=== PATIENT | female | born 1995 | race Caucasian/White ===

== ENCOUNTER 2023-10-13 12:54 | Observation (INO) | payer OTHER, SELFPAY ==
[2023-10-13] VITALS (20 sets, daily range): BP systolic 105–133; BP diastolic 68–78; PULSE 75–131; RESP 15–26; TEMP 36.4–38.1; O2SAT 97–100; BMI 24.5; BMI 24.6
--- NOTE | 2023-10-13 13:03 | ED_ITS ---
HPI - Nausea/Vomiting/Diarrhea General Chief complaint: Nausea/Vomiting/Diarrhea Stated complaint: Post 5 days, n/v/uti/orthostatic Time Seen by Provider: 10/13/23 13:03 Source: patient and EMS Mode of arrival: EMS History of Present Illness HPI Narrative: 28-year-old woman, , status post vaginal delivery on 10/07 discharged from [facility] on the . Notes indicate that she was afebrile with stable vitals from fundus and normal amount of lochia at time of discharge. On the she talked to the on-call central processing technician and was felt to have a urinary tract infection Macrobid was started and was to continue for 7 days, she took a single dose last night. She was also given Anusol HC for her hemorrhoids. She is been having difficulty with , notes that she is engorged but not having any luck with latching and does not want to continue pumping. Likely will choose to not continue . She has been having some diarrhea she would an episode of vomiting earlier today. She is not noticing significant vaginal discharge, odor and is not particularly concerned with any uterine cramping. Related Data Allergies Allergy/AdvReac Type Severity Reaction Status Date / Time No Known Drug Allergies Allergy Verified 10/13/23 13:34 Review of Systems Review of Systems Narrative: Pertinent positive and negative findings as per HPI Patient History Social History Smoking Status: Current every day smoker Smoking Status: Current every day smoker alcohol intake frequency: holidays/special occasions only Substance Use Type: does not use Exam Initial Vital Signs Initial Vital Signs: Vital Signs Temperature 100.2 F H 10/13/23 12:55 Pulse Rate 131 H 10/13/23 12:55 Respiratory Rate 20 10/13/23 12:55 Blood Pressure 115/75 10/13/23 12:55 Pulse Oximetry 97 10/13/23 12:55 Oxygen Delivery Method Room Air 10/13/23 12:55 General: Pale, poor color to her lips even lying supine, in no acute distress. Able to give a complete and coherent history. Well-nourished well-developed HEENT: Moist mucous membranes, normal sclera with reactive pupils, Neck: No cervical adenopathy, supple Respiratory: Lungs are clear to auscultation, no wheezing no rales no rhonchi. Full and symmetrical air movement Chest: Breasts are full but no erythema or point tenderness beyond being engorged Cardiac: Tachycardic but otherwise Regular rate and rhythm no murmurs no bruits Abdomen: Soft, nontender, good bowel tones, no flank pain. Uterus is 3-4 cm below the umbilicus and is not tender to palpation Skin: Pale, diaphoretic, no rashes Neurologic: Globally weak but Grossly neurologically intact with no obvious asymmetries or abnormalities Extremities: No trauma, well perfused, no lower extremity edema Psych: Cooperative, appropriate insight and affect Course Orders Ordered: ED Orders 10/13/23 13:00 Complete Blood Count AUTO DIFF Stat Comprehensive Metabolic Panel Stat Lactate (Lactic Acid) Stat Lipase Stat PTT Partial Thromboplastin Dustin Stat Procalcitonin Stat Prothrombin Time INR Stat 10/13/23 13:01 EKG-12 Lead Stat 10/13/23 13:04 XR chest 1V Stat RT Consult Eval and Treat NOW 10/13/23 13:11 Blood Culture Stat 10/13/23 13:15 US pelvic complete Stat 10/13/23 15:27 Urine Culture Stat Urine Microscopic Stat Sodium Chloride (Normal Saline 0.9%) 1,000 mls @ 200 mls/hr IV CONT ANURAG Last Admin: 10/13/23 15:28 Dose: 200 mls/hr Documented By: PARTHA Ondansetron HCl (Ondansetron 4 Mg/2 Ml Inj) 4 mg IV NOW PRN PRN Reason: Nausea And Vomiting Ondansetron HCl (Ondansetron 4 Mg Odt) 4 mg SL NOW PRN PRN Reason: Nausea And Vomiting Discontinued Medications Acetaminophen (Acetaminophen 325 Mg Tablet) 975 mg PO NOW ONE Stop: 10/13/23 15:42 Last Admin: 10/13/23 15:48 Dose: 975 mg Documented By: PARTHA Sodium Chloride (Normal Saline 0.9%) 1,000 mls @ 1,000 mls/hr IV BOLUS ONE Stop: 10/13/23 14:02 Last Infusion: 10/13/23 13:53 Dose: Infused Documented By: Admin: 10/13/23 13:05 Dose: 1,000 mls/hr Documented By: PARTHA Piperacillin Sod/Tazobactam (Sod 4.5 gm/ Sodium Chloride) 100 mls @ 200 mls/hr IV NOW ONE Stop: 10/13/23 13:27 Last Infusion: 10/13/23 14:21 Dose: Infused Documented By: Admin: 10/13/23 13:49 Dose: 200 mls/hr Documented By: PARTHA Gentamicin Sulfate 380 mg/ (Sodium Chloride) 109.5 mls @ 109.5 mls/hr IV NOW ONE Stop: 10/13/23 13:27 Last Infusion: 10/13/23 15:43 Dose: Infused Documented By: Admin: 10/13/23 14:38 Dose: 109.5 mls/hr Documented By: PARTHA Clindamycin Phosphate (Cleocin) 900 mg in 50 mls @ 50 mls/hr IV Q8H ONE Stop: 10/13/23 14:26 Last Admin: 10/13/23 15:48 Dose: 50 mls/hr Documented By: PARTHA Sodium Chloride (Normal Saline 0.9%) 1,000 mls @ 1,000 mls/hr IV BOLUS ONE Stop: 10/13/23 14:25 Last Infusion: 10/13/23 14:48 Dose: Infused Documented By: Admin: 10/13/23 13:48 Dose: 1,000 mls/hr Documented By: PARTHA Sodium Chloride (Normal Saline 0.9%) 1,000 mls @ 1,000 mls/hr IV BOLUS ONE Stop: 10/13/23 14:26 Last Admin: 10/13/23 15:20 Dose: Not Given Documented By: PARTHA Vital Signs Vital signs: Vital Signs - 8 hr 10/13/23 12:55 10/13/23 12:55 10/13/23 13:00 Temperature 100.2 F H 100.2 F H Pulse Rate 131 H 127 H 117 H Respiratory Rate 20 18 Blood Pressure 115/75 Pulse Oximetry 97 97 97 Oxygen Delivery Method Room Air Room Air 10/13/23 13:02 10/13/23 13:02 10/13/23 13:15 Temperature Pulse Rate 118 H Respiratory Rate 22 Blood Pressure 116/68 129/72 Pulse Oximetry 97 Oxygen Delivery Method 10/13/23 13:15 10/13/23 13:17 10/13/23 13:17 Temperature Pulse Rate 116 H 126 H Respiratory Rate 16 26 H Blood Pressure 133/71 Pulse Oximetry 98 Oxygen Delivery Method 10/13/23 13:30 10/13/23 13:30 10/13/23 13:45 Temperature Pulse Rate 120 H 108 H Respiratory Rate 17 15 Blood Pressure 125/70 Pulse Oximetry 98 98 Oxygen Delivery Method 10/13/23 13:45 10/13/23 14:00 10/13/23 14:00 Temperature Pulse Rate 112 H Respiratory Rate 26 H Blood Pressure 106/69 123/78 Pulse Oximetry 98 Oxygen Delivery Method 10/13/23 14:12 10/13/23 14:12 10/13/23 14:30 Temperature Pulse Rate 118 H 106 H Respiratory Rate 18 20 Blood Pressure 111/73 Pulse Oximetry 98 100 Oxygen Delivery Method 10/13/23 15:00 10/13/23 15:30 10/13/23 15:41 Temperature 100.5 F H Pulse Rate 99 H 100 H Respiratory Rate 21 22 Blood Pressure Pulse Oximetry 99 97 Oxygen Delivery Method Room Air 10/13/23 16:00 10/13/23 16:07 10/13/23 16:07 Temperature Pulse Rate 91 H 84 Respiratory Rate 19 Blood Pressure 106/70 Pulse Oximetry 98 97 Oxygen Delivery Method MDM - Nausea/Vomiting/Diarrhea Lab Data 10/13/23 13:00 10/13/23 13:00 Labs: Lab Results 10/13/23 10/13/23 Range/Units 13:00 15:27 WBC 20.2 H (4.5-11.0) X10^3/uL RBC 5.17 (4.0-5.2) X10^6/uL Hgb 15.9 (12.0-16.0) g/dL Hct 46.9 H (36-46) % MCV 90.7 (80-100) fL MCH 30.7 (26-34) PG MCHC 33.9 (30-36) % RDW 13.1 (11.6-14.8) % Plt Count 227 (150-400) X10^3/uL Neut % (Auto) 95.3 H (50-75) % Lymph % (Auto) 1.7 L (25-40) % [place] % (Auto) 2.2 L (3-14) % Eos % (Auto) 0.7 L (2-4) % Baso % (Auto) 0.1 (0-2) % Neut # (Auto) 36068 H (4297-4863) /uL Lymph # (Auto) 300 L (4133-0516) /uL [place] # (Auto) 400 (0-900) /uL Eos # (Auto) 200 (0-450) /uL Baso # (Auto) 0 (0-100) /uL PT 10.5 (9.4-12.5) SECONDS INR 0.9 (0.9-1.3) APTT 26 (25.1-36.5) SECONDS Sodium 136 L (137-145) mmol/L Potassium 4.0 (3.4-5.1) mmol/L Chloride 106 (98-107) mmol/L Carbon Dioxide 21 L (22-32) mmol/L BUN 14 (7-17) mg/dL Creatinine 0.65 (0.52-1.04) mg/dL Estimated GFR > 60 (>60) mL/min BUN/Creatinine Ratio 21.5 (6-22) Glucose 100 (70-100) mg/dL Lactate 1.0 (0.7-2.1) mmol/L Calcium 9.6 (8.4-10.2) mg/dL Total Bilirubin 1.1 (0.2-1.3) mg/dL AST 37 H (14-36) IU/L ALT 49 H (<35) IU/L Alkaline Phosphatase 142 H (38-126) U/L Total Protein 7.8 (6.3-8.2) g/dL Albumin 4.1 (3.5-5.0) g/dL Globulin 3.7 (1.7-4.1) g/dL Albumin/Globulin Ratio 1.1 (1.0-2.8) Lipase 59 (23-300) U/L Procalcitonin 0.09 (<0.5) ng/mL Urine RBC 5-10/hpf H (0-5/HPF) Urine WBC 5-10/hpf H (0-5/HPF) Ur Squamous Epith Cells 0-1 /hpf (0-5/HPF) Urine Bacteria Occasional (0-1) (None) Ur Culture Indicated? Specimen cultured Urine Dip Bedside Urine Glucose Negative Bedside Urine Bilirubin - Negative Bedside Urine Ketone + 15 Urine Specific [place] 1.015 Bedside Urine Occult Blood +++ Bedside Urine pH 6.0 Bedside Urine Protein - Negative Bedside Urine Urobilinogen - Negative Bedside Urine Nitrite - Negative Bedside Urine Leukocytes +++ 500 Esterase [facility] decision making narrative: CC: Nausea, vomiting, tachycardia and hypotension Complicating co-morbidities: 5 days , vaginal delivery Data collected from: patient, mother Medical records reviewed: Delivery notes and on-call notes from [facility] reviewed. Macrobid was the antibiotic that was called in for presumed UTI when she is taken a single dose of that so far Differential considered: Sepsis, UTI, pyelonephritis, endomyometrosis, retrain products of conception, mastitis Exam documented above, pertinent findings include: Pale significantly orthostatic, tachycardic. Aside from the dysuria no localizing signs of infection. Lab Test results independently reviewed as above. Pertinent findings: [facility]: White blood cell count at time of discharge from the hospital 10/09 was 22.2. White blood cell count on arrival October 07 was 11.6 CBC shows a white count of 20.2 with 95% neutrophils. No evidence of hemolysis or low platelets Chemistries show reassuring renal function, ALT AST and alkaline phosphatase are all slightly elevated. Procalcitonin is not significantly elevated Lipase is normal Lactic acid is normal Imaging studies independently reviewed: Ultrasound of the uterus does not show any retained products or concerns for significantly thickened endometrium 5 days Chest x-ray is independently reviewed and is unremarkable Consultations:Dr Wright, will admit Treatments: Initial antibiotics will include Zosyn with concerns for sepsis unknown source as well as clindamycin and gentamicin for appropriate endometritis coverage Re-evaluations: After 3 L of fluid she is still slightly tachycardic but at least not going up into the 160s when she stands. She feels that she could void if requested but certainly does not feel the immediate urge. So still concerns for infection however this is not mastitis, gallbladder issue, endometrial infection, cellulitis, mastitis or pneumonia. Still waiting for urine but she has minimal suprapubic tenderness and minimal flank pain. With no chest pain or dyspnea and alternate explanation for her tachycardia, my suspicion for pulmonary embolism is low 430pm resting heart rate supine has come down to the upper 80s however still goes up to the 100 and 30s when standing. Nausea is a bit better controlled. Urine finally has been produced and suggests red cells white blood cells no bacteria seen still concern for urinary tract infection Discussion: 28-year-old woman, 5 days normal vaginal delivery with no evidence of retained products or thickened endometrial lining presents with nausea vomiting significant hypotension prior to fluid resuscitation and suggestion of a urinary tract infection. Significant leukocytosis with white count at 20.2 and 95.3% neutrophils. No significant anemia. Procalcitonin is not elevated and lactic acid is at 1. Currently there is no suggestion of pneumonia, mastitis, significant intra-abdominal tenderness that would suggest CT scan of the abdomen might be helpful. The patient clinically continues to look acutely ill, still quite pale, wild lips minimal urine output. In consultation with Dr. Wright and in agreement with the patient and her mother will keep her in the hospital with continued Zosyn and clindamycin while we await cultures and continue with hydration. Discharge Plan Departure Patient Disposition: Admitted as Observation Clinical Impression: Dehydration Leukocytosis Qualifiers: Leukocytosis type: unspecified Qualified Code(s): D72.829 - Elevated white blood cell count, unspecified Admit Date/Time: 10/13/23 17:07 Admit Provider: Gertrudis Wright
--- NOTE | 2023-10-13 13:04 | DI.RAD.S_ITS ---
PROCEDURE: XR CHEST 1V INDICATIONS: suspected sepsis TECHNIQUE: One view of the chest was acquired. COMPARISON: None. FINDINGS: Surgical changes and devices: None. Lungs and pleura: Lungs are clear. No pleural effusions or pneumothorax. Mediastinum: Mediastinal contours appear normal. Heart size is normal. Bones and chest wall: No suspicious bony lesions. Overlying soft tissues appear unremarkable. IMPRESSION: No acute radiographic abnormality on this single view study. Dictated by: Gera Garcia M.D. on 10/13/2023 at 14:43 Approved by: Gera Garcia M.D. on 10/13/2023 at 14:44
[2023-10-13] MEDS: SODIUM CHLORIDE 0.9% 1,000 ML 1000 ML IV ×2 (13:05→13:48)
--- NOTE | 2023-10-13 13:09 | PC.NURSE ---
Pt is 5 days post and reports currently being treated for UTI. Pt reports having an uncomplicated labor/delivery but was induced at 38 weeks. Pt a&Ox4. Pt reports having some pelvic pressure that she rates at a 4/10 pain. Pt HR sinus tach at 120. [employer] intact.
--- NOTE | 2023-10-13 13:15 | DI.US.S_ITS ---
PROCEDURE: US PELVIC COMPLETE INDICATIONS: 5 DAYS . PELVIC DISCOMFORT/N V. + HOME UTI TEST. TECHNIQUE: Real-time scanning was performed of the pelvic organs, with image documentation. COMPARISON: None. FINDINGS: Uterus: 15.5 x 9.9 x 6.8 cm. Anteverted positioning. Heterogeneous and enlarged. The endometrium is thin, without focal hypervascularity are mass. Ovaries: Nonenlarged ovaries bilaterally. Other: No pathologic pelvic free fluid. IMPRESSION: Expected post appearance of the enlarged uterus, without drainable fluid collection or focal hypervascularity suggests retained products. Nonenlarged ovaries. Dictated by: Gera Garcia M.D. on 10/13/2023 at 14:01 Approved by: Gera Garcia M.D. on 10/13/2023 at 14:02
[2023-10-13 13:18] LABS: Add Manual Diff / Slide Review NO; Basophils Absolute Auto 0 /uL (0-100); Basophils Percent Auto 0.1 % (0-2); Eosinophils Absolute Auto 200 /uL (0-450); Eosinophils Percent Auto 0.7 % (2-4); Hematocrit 46.9 % (36-46); Hemoglobin 15.9 g/dL (12.0-16.0); Lymphocytes Absolute Auto 300 /uL (1100-4500); Lymphocytes Percent Auto 1.7 % (25-40); Mean Corpuscular HGB Conc 33.9 % (30-36); Mean Corpuscular Hemoglobin 30.7 PG (26-34); Mean Corpuscular Volume 90.7 fL (80-100); Monocytes Absolute Auto 400 /uL (0-900); Monocytes Percent Auto 2.2 % (3-14); Neutrophils Absolute Auto 19300 /uL (1500-7000); Neutrophils Percent Auto 95.3 % (50-75); Platelet Count 227 X10^3/uL (150-400); Red Blood Cell Count 5.17 X10^6/uL (4.0-5.2); Red Cell Distribution Width 13.1 % (11.6-14.8); White Blood Cell Count 20.2 X10^3/uL (4.5-11.0)
--- NOTE | 2023-10-13 13:20 | PC.NURSE ---
Pt up to bsc, HR 152. Pt does not report being dizzy or lightheaded. Pt unable to produce urine at this time.
[2023-10-13 13:22] LABS: INR 0.9 (0.9-1.3); Prothrombin Time 10.5 SECONDS (9.4-12.5)
[2023-10-13 13:25] LABS: PTT Partial Thromboplastin Tim 26 SECONDS (25.1-36.5)
[2023-10-13 13:27] LABS: Alanine Aminotransferase 49 IU/L (<35); Albumin 4.1 g/dL (3.5-5.0); Albumin Globulin Ratio 1.1 (1.0-2.8); Alkaline Phosphatase 142 U/L (38-126); Aspartate Aminotransferase 37 IU/L (14-36); BUN Creatinine Ratio 21.5 (6-22); Bilirubin Total 1.1 mg/dL (0.2-1.3); Blood Urea Nitrogen 14 mg/dL (7-17); Calcium 9.6 mg/dL (8.4-10.2); Carbon Dioxide 21 mmol/L (22-32); Chloride 106 mmol/L (98-107); Estimated Glomerular Filt Rate > 60 mL/min (>60); Globulin 3.7 g/dL (1.7-4.1); Glucose 100 mg/dL (70-100); HEMOLYSIS < 15 (0-50); Lipase 59 U/L (23-300); Sodium 136 mmol/L (137-145); Total Protein 7.8 g/dL (6.3-8.2)
[2023-10-13 13:43] LABS: Procalcitonin 0.09 ng/mL (<0.5)
[2023-10-13] MEDS: PIPERACILLIN/TAZO 4.5 GM in SODIUM CHLORIDE 0.9% 100 ML IV (13:49)
[2023-10-13] MEDS: GENTAMICIN 380 MG in SODIUM CHLORIDE 0.9% 100 ML 109.5 MG IV (14:38)
[2023-10-13] MEDS: SODIUM CHLORIDE 0.9% 1,000 ML 200 ML IV (15:28)
--- NOTE | 2023-10-13 15:34 | PC.NURSE ---
pt up to bsc with standby assits. HR increased to 115 and pt reported feeling an intense pounding in her head. She denies any cp, sob, nausea. Denies feeling dizzy when standing up or upon ambulation. A&Ox4.
[2023-10-13] MEDS: ACETAMINOPHEN 325 MG TABLET 975 MG PO (15:48)
[2023-10-13] MEDS: CLINDAMYCIN 900 MG/50 ML PIGGYBACK 50 MG IV ×2 (15:48→20:48)
[2023-10-13 16:07] LABS: RBC Urine 5-10/HPF (0-5/HPF)
[2023-10-13 16:08] LABS: Bacteria Urine Occasional (0-1); Culture Indicated Urine Specimen Cultured; Squamous Epithelial Cell Urine 0-1 /HPF (0-5/HPF); WBC Urine 5-10/HPF (0-5/HPF)
[2023-10-13] MEDS: PIPERACILLIN/TAZO 3.375 GM in SODIUM CHLORIDE 0.9% 100 ML IV (18:10)
--- NOTE | 2023-10-13 19:46 | PC.NURSE ---
Admit note: Patient admitted to room 215, ambulated independently in room. IV abx initiated. Voided x 1, loose stool x1. Dr. Wright made aware of patient arrival to AC unit and need for admit orders. General diet ordered. NO nausea or vomiting. Oriented to room, environment and plan of care. Call light within reach.
[2023-10-13] MEDS: LACTATED RINGERS 1,000 ML 100 ML IV (20:48)
[2023-10-14] VITALS: BP 110/70; PULSE 66; RESP 16; TEMP 36.8; O2SAT 96
[2023-10-14] MEDS: PIPERACILLIN/TAZO 3.375 GM in SODIUM CHLORIDE 0.9% 100 ML IV ×2 (02:15→10:29)
[2023-10-14 04:00] VITALS: BP 104/69; PULSE 60; RESP 16; TEMP 36.6; O2SAT 98
[2023-10-14] MEDS: CLINDAMYCIN 900 MG/50 ML PIGGYBACK 50 MG IV ×2 (04:40→10:19)
[2023-10-14 06:34] LABS: Add Manual Diff / Slide Review NO; Basophils Absolute Auto 0 /uL (0-100); Basophils Percent Auto 0.1 % (0-2); Eosinophils Absolute Auto 200 /uL (0-450); Eosinophils Percent Auto 1.9 % (2-4); Hematocrit 37.4 % (36-46); Hemoglobin 12.9 g/dL (12.0-16.0); Lymphocytes Absolute Auto 1400 /uL (1100-4500); Lymphocytes Percent Auto 16.5 % (25-40); Mean Corpuscular HGB Conc 34.6 % (30-36); Mean Corpuscular Hemoglobin 31.3 PG (26-34); Mean Corpuscular Volume 90.5 fL (80-100); Monocytes Absolute Auto 500 /uL (0-900); Monocytes Percent Auto 6.4 % (3-14); Neutrophils Absolute Auto 6300 /uL (1500-7000); Neutrophils Percent Auto 75.1 % (50-75); Platelet Count 175 X10^3/uL (150-400); Red Blood Cell Count 4.14 X10^6/uL (4.0-5.2); Red Cell Distribution Width 12.8 % (11.6-14.8); White Blood Cell Count 8.4 X10^3/uL (4.5-11.0)
[2023-10-14 08:00] VITALS: BP 124/80; PULSE 70; RESP 18; TEMP 36.9; O2SAT 99
[2023-10-14] MEDS: LACTATED RINGERS 1,000 ML 100 ML IV (08:48)
--- NOTE | 2023-10-14 10:52 | PC.NURSE ---
Patient is post pardum 5 days, she states that she does have minimal bleeding as expected but denies any lower abdominal pain. She pumped her breast milk this morning and then dumped this out. This was tender for her but she is now relaxing and eating a breakfast sandwich. She is getting her iv antibiotics and tolerating them well. No temperatures and vss.
--- NOTE | 2023-10-14 11:03 | CM.DANOTE ---
Reviewed EMR and team rounds for pt's medical status and anticipated d/c needs. Met with pt at bedside and introduced self and role. She was found to be alert, oriented, expressing feeling much better and back at her baseline. Payor: Graciela Monreal Attending: Dr. Wright Pt is a 28 year-old F admitted for N/V/diarrhea and UTI 5-days post-. She was admitted and started on IV fluids and antibiotics. As of today she is expressing feeling ready to return home to her baby, is feeling much improved and is asking to be discharged. Spouse will transport. Per her request, called Dr. Wright and left a message re: pt's desire to be d/c'd as soon as possible. No home d/c needs identified at this time.x Discharge Planning/Care Management CM Discharge Assessment Start: 10/14/23 11:01 Freq: Status: Active Protocol: Document 10/14/23 11:01 DPL (Rec: 10/14/23 11:03 DPL [id number]) Discharge Planning Assessment Assigned Rn Telephone Triage KADEN Singer Advance Directives? No History Provided By Patient,Medical Record Has Patient been admitted in last 30 No days? Prior Living Arrangements House Household Members spouse Type of transporation used prior to Drives own vehicle admit Independent with ADL's Yes Is patient alert and oriented? Yes Comment N/A Caregiver for Another Yes: [place] Comment N/A Comment No anticipated home d/c needs identified at this time. Barriers to Discharge No Discharge Plan Home Transportation Arrangement Spouse Referrals Initiated None needed Whiteboard Updated in Patient Room with Yes name and ext. # of Rn Telephone Triage Review Status In Process Please Provide Date Initial DC 10/14/23 Assessment Was Performed
--- NOTE | 2023-10-14 11:58 | P.HPOB_ITS ---
History of Present Illness History of Present Illness Narrative: Itzel Baird is a 28 year old female 1 para 1 who presented to the emergency department 5 days with chills, nausea, vomiting, and diarrhea. She was found to have a low-grade fever in the emergency department. She had an uncomplicated and was induced with misoprostol. She then had a Gerardo bulb placed for mechanical dilation of the cervix. She had artificial rupture of membranes and Pitocin. She received an epidural for pain management. There were proximally 5 hours between rupture of membranes and delivery of the baby. She is breast and bottle feeding. She did have some engorgement a few days ago but that has resolved. No redness or tenderness of the breasts. No foul-smelling drainage from the vagina. Normal bleeding. No cramping. She did notice an odor when urinating. Her white count upon admission for delivery was 11,000. She went up to 22,000 before being discharged home. In the ED last evening she was 20,000. [facility] Social History household members: spouse Smoking Status: Current every day smoker Meds Home Medications and Allergies Home Medications Medication Instructions Recorded Confirmed Type No Known Home Medications 10/13/23 10/13/23 History Allergies Allergy/AdvReac Type Severity Reaction Status Date / Time No Known Drug Allergies Allergy Verified 10/13/23 13:34 Exam Vital Signs (past 8 hours): - 10/14/23 04:00 10/14/23 08:00 Temperature 97.8 F 98.5 F Pulse Rate 60 70 Respiratory Rate 16 18 Blood Pressure 104/69 124/80 Pulse Oximetry 98 99 Oxygen Flow Rate 0 0 Oxygen Delivery Method Room Air Oxygen Flow Rate 0 Narrative Exam Narrative: Generally: A well-developed, well-nourished female, walking around in the room, no acute distress Lungs: Clear to auscultation bilaterally Cardiovascular: Regular rate and rhythm Breasts: Soft, symmetrical, no lymphadenopathy. No erythema. No engorgement. Fundus: Firm U -4, nontender. Extremities: No edema, negative Homans bilaterally. Objective Labs 10/14/23 05:45 10/13/23 13:00 Labs: Laboratory Results - last 24 hr 10/13/23 10/13/23 10/14/23 13:00 15:27 05:45 WBC 20.2 H 8.4 D RBC 5.17 4.14 Hgb 15.9 12.9 Hct 46.9 H 37.4 MCV 90.7 90.5 MCH 30.7 31.3 MCHC 33.9 34.6 RDW 13.1 12.8 Plt Count 227 175 Neut % (Auto) 95.3 H 75.1 H D Lymph % (Auto) 1.7 L 16.5 L [place] % (Auto) 2.2 L 6.4 Eos % (Auto) 0.7 L 1.9 L Baso % (Auto) 0.1 0.1 Neut # (Auto) 66365 H 6300 Lymph # (Auto) 300 L 1400 [place] # (Auto) 400 500 Eos # (Auto) 200 200 Baso # (Auto) 0 0 PT 10.5 INR 0.9 APTT 26 Sodium 136 L Potassium 4.0 Chloride 106 Carbon Dioxide 21 L BUN 14 Creatinine 0.65 Estimated GFR > 60 BUN/Creatinine Ratio 21.5 Glucose 100 Lactate 1.0 Calcium 9.6 Total Bilirubin 1.1 AST 37 H ALT 49 H Alkaline Phosphatase 142 H Total Protein 7.8 Albumin 4.1 Globulin 3.7 Albumin/Globulin Ratio 1.1 Lipase 59 Procalcitonin 0.09 Urine RBC 5-10/hpf H Urine WBC 5-10/hpf H Ur Squamous Epith Cells 0-1 /hpf Urine Bacteria Occasional (0-1) Ur Culture Indicated? Specimen cultured Assessment & Plan Assessment & Plan narrative: Assessment: 28-year-old 1 para 1, 6 days who was admitted with elevated white count, nausea vomiting and diarrhea as well as a low-grade fever. No obvious source of infection Preliminary urine culture is negative Plan: Discussed all of the above with patient. She would feel more comfortable going home on an antibiotic for UTI. Bactrim DS 1 p.o. b.i.d. for 7 days. Diflucan 150 mg p.o. x1, repeat in 5 days as needed. All of this as needed. Patient to return with fever, chills, redness or tenderness in her calves, shortness of breath, chest pain, abdominal pain, or breast redness along with tenderness.
[2023-10-14 12:00] VITALS: RESP 18
--- NOTE | 2023-10-14 13:39 | PC.NURSE ---
Assumed care of pt at 1315, A&Ox4, resting comfortably in bed, no c/o pain. Pt is eager for discharge when antibiotics finish infusing. She does not want to pump at this time but will call if she would like to do so before d/c. Bed in low position, call light and patient items within reach.
--- NOTE | 2023-10-14 15:35 | PC.NURSE ---
Pt discharged home at 1457, escorted off floor in wheelchair accompanied by hospital staff. IVs removed, discharge teaching completed including new medications and worsening symptoms. Questions and concerns addressed.
== END 2023-10-14 15:41 | disposition home or self-care (01) ==
LOC: ED 14:34 → AC 17:07
PROVIDERS: Admitting Provider Obstetrics & Gynecology; Emergency Provider Emergency Medicine; Visit Provider Obstetrics & Gynecology
DX: R11.2 Nausea with vomiting, unspecified (principal); O86.4 Pyrexia of unknown origin following delivery; R19.7 Diarrhea, unspecified; D72.829 Elevated white blood cell count, unspecified; E86.0 Dehydration; O99.335 Smoking (tobacco) complicating the puerperium; F17.210 Nicotine dependence, cigarettes, uncomplicated; O99.893 Other specified diseases and conditions complicating puerperium; I95.9 Hypotension, unspecified; R00.0 Tachycardia, unspecified
CPT/HCPCS: 36415; 71045; 76856; 80053; 81003; 81015; 83605; 83690; 84145; 85025; 85610; 85730; 87040; 87086; 93005; 96361; 96365; 96366; 96367; 96368; 99221; 99284; 99285; G0378; J2543

== ENCOUNTER → 2024-07-02 09:47 | Outpatient (CLI) | payer OTHER, SELFPAY ==
[2023-10-13 17:57] VITALS: BMI 24.6
== END ==
PROVIDERS: PCP Student in an Organized Health Care Education/Training Program; Referring Provider Student in an Organized Health Care Education/Training Program; Visit Provider Student in an Organized Health Care Education/Training Program
DX: R00.2 Palpitations (principal)
CPT/HCPCS: 93246; 93248

== ENCOUNTER → 2025-06-05 08:33 | Outpatient (CLI) | payer OTHER, SELFPAY ==
[2023-10-13 17:57] VITALS: BMI 24.6
[2025-06-05 11:08] LABS: Add Manual Diff / Slide Review NO; Hematocrit 40.4 % (36-46); Hemoglobin 13.7 g/dL (12.0-16.0); Lymphocytes Absolute Auto 3500 /uL (1100-4500); Mean Corpuscular HGB Conc 34.1 % (30-36); Mean Corpuscular Hemoglobin 29.9 PG (26-34); Mean Corpuscular Volume 87.8 fL (80-100); Platelet Count 205 X10^3/uL (150-400)
[2025-06-05 11:35] LABS: Alanine Aminotransferase 18 IU/L (<35); Albumin 4.6 g/dL (3.5-5.0); Albumin Globulin Ratio 1.5 (1.0-2.8); Alkaline Phosphatase 57 U/L (38-126); Blood Urea Nitrogen 11 mg/dL (7-17); Calcium 9.2 mg/dL (8.4-10.2); Carbon Dioxide 26 mmol/L (22-32); Chloride 102 mmol/L (98-107); Cholesterol 163 mg/dL (140-199); Estimated Glomerular Filt Rate > 60 mL/min (>60); Globulin 3.0 g/dL (1.7-4.1); Glucose 99 mg/dL (70-99); HDL Cholesterol 51 mg/dL (40-60); HEMOLYSIS < 15 (0-50); Potassium 4.8 mmol/L (3.4-5.1); Sodium 131 mmol/L (137-145); Total Protein 7.6 g/dL (6.3-8.2); Triglycerides 93 mg/dL (35-150)
[2025-06-05 12:02] LABS: TSH w/ Reflex to FT4 2.25 uIU/mL (0.47-4.68)
== END ==
PROVIDERS: PCP Student in an Organized Health Care Education/Training Program; Referring Provider Student in an Organized Health Care Education/Training Program; Visit Provider Student in an Organized Health Care Education/Training Program
DX: Z00.01 Encounter for general adult medical examination with abnormal findings (principal); Z80.0 Family history of malignant neoplasm of digestive organs
CPT/HCPCS: 36415; 80053; 80061; 84443; 85025